=== PATIENT | male | born 1950 | race Caucasian/White ===

== ENCOUNTER 2023-10-28 08:45 | Outpatient (OUT) | payer MEDICARE, SELFPAY | END 2023-10-28 08:46 | disposition home or self-care (01) | PROVIDERS: PCP Radiology Diagnostic Radiology; Visit Provider Radiology Diagnostic Radiology | DX: I83.813 Varicose veins of bilateral lower extremities with pain (principal) ==

== ENCOUNTER 2023-11-05 08:02 | Outpatient (OUT) | payer MEDICARE, SELFPAY ==
--- NOTE | 2023-11-05 08:03 | VEIN_ITS ---
Patient Name: PRINCE CARO MR#: [id number] : 1950 Exam Date: 11/05/2023 Ordering Doctor: DR ARNULFO MACK M.D. RADIOLOGY REPORT PROCEDURE: [facility] COMPREHENSIVE VEIN CENTER - OFFICE VISIT INITIAL COMPARISON: None. PROGRESS NOTES: 73-year-old male who presents with a 10 year history of lower extremity pain swelling varicose veins. The patient complains of dilated discolored veins with leg swelling and muscle cramps. The patient's left side is worse than the right. The patient describes the pain as aching burning and heaviness and rates the pain as a 7 on a scale of 1-10. The patient's symptoms are exacerbated by prolonged sitting and standing and are partially relieved by rest, leg elevation, exercise, support stockings and diclofenac. History of varicose veins in the family, patient's father. The patient retired in 2010 from [employer]. The patient has had previous treatment for varicose veins in the [facility] having only injection sclerotherapy. Patient has worn knee high stockings since this treatments. The patient denies any signs and symptoms to suggest arterial ischemia. The patient describes a family history of type 2 diabetes in varicose veins in his father. The patient does not drink alcohol. No illicit drug use. The patient has never smoked. Past medical history is significant for 2 left knee replacements in 2002 and 2007. Cecectomy and hernia repair. Patient has a long history gout. Gastroesophageal reflux disease and hypertension. No history of deep venous thrombus or pulmonary embolus. See separate history and physical for medication list. Nursing notes were reviewed After history and physical exam I discussed at length the pathophysiology of venous hypertension and possible treatments, therapies and strategies available. We discussed at length the importance of elevating the lower extremities above the level of the heart, increased physical activity and compression stocking use. We discussed conservative treatment with bilateral compression stockings. We discussed surgical interventions including ligation and stripping and phlebectomy. We discussed intravenous laser ablation, micro foam chemical ablation and injection sclerotherapy at length. Risks benefits and alternatives were discussed. Patient questions were answered Ultrasound venous reflux study performed the same day was discussed at length with the patient. The report demonstrates mild right great saphenous vein venous insufficiency with dilatation and saphenofemoral junction reflux. Bilateral incompetent varicose veins. PHYSICAL EXAM: The right leg demonstrates mild to moderate scattered varicose, reticular and spider veins. Moderate subcutaneous edema mid calf ankle and foot. Some hemosiderin discoloration along the posterior distal lower leg. No active ulceration The left leg demonstrates moderate scattered varicose reticular and spider veins. Multiple pre hemorrhagic veins along the anterior lower leg and dorsal foot. Some hemosiderin staining noted distal lower leg. Both thighs, legs and feet were symmetrically warm to the touch. Good posterior tibial and dorsalis pedis pulses were present bilaterally. VEIN/VC Facility EST Comprehensive IMPRESSION: 1. Right great saphenous vein venous insufficiency 2. Bilateral incompetent lower extremity varicose veins 3. Moderate bilateral lower extremity subcutaneous edema with hemosiderin staining 4. No definite flow significant arterial disease 5. CEAP: C4a, Ep, As, Pr PLAN: 1. Endovenous laser ablation right great saphenous vein 2. Micro foam chemical ablation bilateral incompetent varicose veins 3. Injection sclerotherapy bilateral reticular, pre hemorrhagic and spider veins 4. Long-term use of bilateral thigh or knee high 20-30 mm compression stockings 5. Leg elevation and increased physical activity for symptomatic relief Nurse notes, history and physical were reviewed and confirmed, see attached forms. The nurse was present throughout the physical exam and consultation Dictated by: Arnulfo Mack MD on 11/05/2023 at 11:19 Approved by: Arnulfo Mack MD on 11/05/2023 at 11:25
--- NOTE | 2023-11-05 08:03 | VEIN_ITS ---
Patient Name: PRINCE CARO MR#: [id number] : 1950 Exam Date: 11/05/2023 Ordering Doctor: DR ARNULFO MACK M.D. RADIOLOGY REPORT PROCEDURE: VC EXT VENOUS REFLUX JOSE MARTIN LMTD COMPARISON: None. INDICATIONS: I83.813 Bilateral painful varicose veins TECHNIQUE: Duplex imaging of the lower extremity to assess the deep and superficial venous system for the presence of deep or superficial venous incompetence and to document the location and severity of disease. The study includes evaluation of the great saphenous vein (GSV), anterior accessory saphenous vein (AASV) and small saphenous vein (SSV). Patient scanned in reverse Trendelenburg and standing. FINDINGS: RIGHT LOWER EXTREMITY: Saphenofemoral Junction Reflux: Yes 9.1mm 1.1 sec GSV: Diam (mm) Reflux/ Time (sec) Proximal Thigh 6.2 Yes 1.3 Mid Thigh 3.0 Yes 1.0 Distal Thigh 2.7 No Prox Calf 2.4 Yes 0.8 Mid Calf 2.7 No Saphenopopliteal Junction Reflux: 2.6mm No SSV: Proximal Calf 2.5 No Mid Calf 2.9 No AASV: Not present Thrombi: No acute or chronic thrombus visualized Compressibility: Normal Flow: Normal Preforator: Dist/med calf 2.6mm with 0s reflux. Prox/med calf 3.4mm with 0s reflux. Tech Note: Incompetent GSV. Patent varicose vein prox/med calf 4.2mm with 0s reflux. LEFT LOWER EXTREMITY: Saphenofemoral Junction Reflux: Yes 5.5 mm 1.0 sec GSV: Diam (mm) Reflux/Time (sec) Proximal Thigh N/A Mid Thigh N/A Distal Thigh N/A Prox Calf N/A Mid Calf N/A Saphenopopliteal Junction Relux: 2.5 mm No SSV: Proximal Calf 2.2 No Mid Calf 2.8 No AASV: Proximal Thigh 3.4 Yes 1.1 Mid Thigh Distal Thigh Thrombi: No acute or chronic thrombus visualized Compressibility: Normal Flow: Normal Stock Order Lister: Dist/med calf 3.3mm with 0s reflux. Tech Note: GSV previously treated. Patent varicose vein mid/med calf 4.1mm with 1.0s reflux. Patent varicose vein prox/med calf 5.3mm with 2.1s reflux. Patent varicose vein dist/med thigh 4.4mm with 0.8s reflux. CONCLUSION: 1. Mild venous insufficiency right great saphenous vein with dilatation and saphenofemoral junction reflux 2. Bilateral incompetent varicose veins measuring up to 5.3 mm on the left Dictated by: Arnulfo Mack MD on 11/05/2023 at 09:41 Approved by: Arnulfo Mack MD on 11/05/2023 at 09:42
--- OUTSIDE RECORDS SUMMARY | 2023-11-05 08:04 | XMS_ITS | CCD ---
Author Organization [facility] Care Team Providers Care Machine Tack Puller Name Role Phone DO Alexandra Shelton Primary Care Provider [phone] MD Dimitris Lin Attending Provider [phone] Mikayla Odell Unavailable DO Alexandra Shelton Primary Care Provider [phone] MD Dimitris Lin Attending Provider Dimitris Lin Admitting Unavailable Dimitris Lin Attending Unavailable Alexandra Shelton Primary Care Unavailable Dimitris Lin Admitting Unavailable Dimitris Lin Attending Unavailable Alexandra Shelton Primary Care Unavailable ALEXANDRA SHELTON Attending Unavailable ALEXANDRA SHELTON Referring Unavailable Problems Problem Classification Problem Date Documented Da te Episodic/Chronic Immunizations and screening for infectious disease (3 sources) Encounter for immunization Onset: 06-27-2021 Resolved: 01-18-2022 Episodic Unclassified (1 source) Encounter for immunization; Translations: [Encounter for immunization] Onset: 07-31-2022 Unclassified (1 source) Z23 - Encounter for immunization; Translations: [Z23 - Encounter for immunization] Onset: 01-18-2022 Results Test Name Value Interpretation Reference Range Facil ity Basic Metabolic Panelon 06-0 Anion gap [Moles/Vol] 19 mmol/L Normal 12-20 [facility] [employer]er Comment on above: Result Comment: Effjared ctive 08/17/2019 reference range changed. Performed By: #### U SCOTT, LIPD, BMP #### [facility] [address] [place], [place] [id number] Calcium [Mass/Vol] 9.7 mg/dL Normal 8.6-10.2 [facility] [employer]sembler Comment on above: Performed By: #### U SCOTT, LIPD, BMP #### [facility] [address] [facility] [place] [id number] Chloride [Moles/Vol] 103 mmol/L Normal 98-107 [facility] [employer]er Comment on above: Performed By: #### U SCOTT LIPD, BMP #### [facility] [address] [facility] [place] [id number] CO2 [Moles/Vol] 21 mmol/L Normal 20-31 [facility] [employer]er Comment on above: Performed By: #### U SCOTT LIPD, BMP #### [facility] [address] [facility] [id number] Creatinine [Mass/Vol] 1.0 mg/dL Normal 0.7-1.4 [facility] [employer] Comment on above: Performed By: #### U SCOTT LIPD, BMP #### [facility] [address] [facility] [place] [id number] eGFRAA 86 mL/min/1.73m2 Normal >60 [facility] [employer]er Comment on above: Performed By: #### U SCOTT LIPD, BMP #### [facility] [address] [facility] [place] [id number] eGFRNAA 71 mL/min/1.73m2 Normal >60 [facility] [employer]er Comment on above: Performed By: #### U MERY CHAVEZD, BMP #### [facility] [address] [place], [place] [id number] Glucose [Mass/Vol] 98 mg/dL Normal 65-99 [facility] [employer]er Comment on above: Result Comment: For FASTING Glucose --- ADA reference ranges: Normal 65-99 mg/dl Prediabetes 100-125 Diabetes >/= 126 Performed By: #### U SCOTT LIPD, BMP #### [facility] [address] [facility] [place] [id number] Potassium [Moles/Vol] 4.8 mmol/L Normal 3.5-5.5 [facility] [employer]er Comment on above: Performed By: #### U SCOTT LIPD, BMP #### [facility] [address] [facility] [place] [id number] Sodium [Moles/Vol] 138 mmol/L Normal 135-146 [facility] [employer]er Comment on above: Performed By: #### U SCOTT, LIPD, BMP #### [facility] [address] [place], [place] [id number] Urea nitrogen [Mass/Vol] 20 mg/dL Normal 7-25 [facility] [employer]er Comment on above: Performed By: #### U SCOTT, LIPD, BMP #### [facility] [address] [place], [place] [id number] Lipid Panelon 01-10-2022 Cholesterol [Mass/Vol] 209 mg/dL High 125-200 [facility] [employer]er Comment on above: Result Comment: Low risk < 200mg/dL Borderline risk 201-239 mg/dl High risk > or equal to 240 Performed By: #### U SCOTT, LIPD, BMP #### [facility] [address] [place], [place] [id number] Cholesterol in HDL [Mass/Vol] 43 mg/dL Normal >40 [facility] [employer] Comment on above: Result Comment: High Cardiovascular Risk HDL <40 mg/dL Low Cardiovascular Risk HDL > or equal to 60 mg/dl Performed By: #### U SCOTT, LIPD, BMP #### [facility] [address] [place], [place] [id number] Cholesterol in LDL [Mass/Vol] 138 mg/dL Normal [facility] [employer]er Comment on above: Result Comment: LDL ATP III CLASSIFICATION LDL less than 100 mg/dl Optimal LDL 100-129 mg/dl Near or above optimal LDL 130-159 Borderline high LDL 160-189 High LDL greater than 189 mg/dl Very High Performed By: #### U SCOTT, LIPD, BMP #### [facility] [address] [place], [place] [id number] Cholesterol in VLDL [Mass/Vol] 28 mg/dL Normal [facility] [employer]er Comment on above: Performed By: #### U SCOTT, LIPD, BMP #### [facility] [address] [place], [place] [id number] Cholesterol.total/ Cholesterol in HDL [Mass ratio] 5 {ratio} Normal [facility] [employer]er Comment on above: Performed By: #### U SCOTT, LIPD, BMP #### [facility] [address] [place], [place] [id number] Triglyceride [Mass/Vol] 140 mg/dL Normal 30-150 [facility] [employer] Comment on above: Result Comment: TRIG ATPIII CLASSIFICATIONS TRIG less than 150 mg/dl Normal TRIG 150-199 mg/dl Borderline High TRIG 200-500 mg/dl High TRIG greather than 500 mg/dl Very High Performed By: #### U ASHLEIGH CHAVEZ, BMP #### [facility] [address] [place], [place] [id number] PSA SCREEN (MEDICARE)on TPSA 1.120 ng/mL Normal <4.000 [facility] [employer]er Comment on above: Result Comment: PSA Test Method: ECLIA/Yoseph e 601 Performed By: #### P SA #### [facility] [address] [place], [place] [id number] Uric Acidon 01-10-2022 URIC 8.8 mg/dL High 4.0-8.0 [facility] [employer]er Comment on above: Result Comment: Refe rence range change 06/28/2017. Prior reference range F 2.4-5.7mg/dL. M 3.4-7.0 mg/dL. Performed By: #### U ASHLEIGH CHAVEZ, BMP #### [facility] [address] [place], [place] [id number] Encounters Encounter Date Encounter Type Care Provider Facility Start: 07-22-2023 End: 07-22-2023 ambulatory ALEXANDRA SHELTON Not Available Start: 07-31-2022 End: 07-31-2022 ambulatory Dimitris Lin Facility:[facility] Start: 07-31-2022 End: 07-31-2022 Patient encounter procedure DO Alexandra Shelton Work Phone: [facility] Vaccine Off Site Start: 07-31-2022 ([facility] C Vac) [facility] Co vid [facility] Start: 07-31-2022 End: 07-31-2022 ambulatory DO Alexandra Shelton Work Phone: [facility] Work Phone: Start: 01-18-2022 ([facility] C Vac) [facility] Co vid Vaccine Mikayla Odell On License Of [facility] Start: 01-18-2022 End: 01-18-2022 ambulatory Dimitris Lin [facility] Other Start: 01-18-2022 End: 01-18-2022 Patient encounter procedure DO Alexandra Shelton Work Phone: [facility] Vaccine Off Site Start: 06-27-2021 ([facility] C Vac) [facility] Co vid Vaccine Mikayla Fitt On License Of [facility] Start: 06-27-2021 End: 06-27-2021 ambulatory Mikayla Fitt Other [facility] Other Immunizations Immunization Date Immunization Notes Care Provider Fa marta 07-31-2022 COVID-19 Pfizer (bivalent) Mikayla Fitt Other [facility] Other 01-18-2022 COVID-19 Pfizer Mikayla Fitt Other [facility] Other 06-27-2021 COVID-19 Pfizer Mikayla Fitt Other [facility] Other 12-07-2020 COVID-19 mRNA, Comirnaty (Pfizer) DO Alexandra Nikita Work Phone: [facility] 11-09-2020 COVID-19 mRNA, Comirnaty (Pfizer) DO Alexandragaurang Shelton Work Phone: [facility] Payers Date Payer Category Payer Self-pay [id number] 2013 Medicare [id number] 1950 Unknown [id number] Unknown [id number] Unknown [id number] Social History Date Type Detail Facility Tobacco smoking status NHIS Unknown if ever smoked [facility] Other Start: 1950 Sex Assigned At Male F [facility] Sex Assigned At Sex Assigned At Bir th [facility] Other Evaluation note 07-31-2022 Note Date & Type Note Facility 07-31-2022 Evaluation note Encounter Date Diagnosis Assessment Notes Jul, Encounter for immunization (ICD-10 - Z23) Patient presents for COVID-19 vaccination BOOSTER. Pre-screening form answers evaluated with patient. Patient denies current illness or allergic reaction to component of COVID-19 vaccine. Patient provided with current copy of EUA. [facility] Other Evaluation note 01-18-2022 Note Date & Type Note Facility 01-18-2022 Evaluation note Encounter Date Diagnosis Assessment Notes Jan, Encounter for immunization (ICD-10 - Z23) Patient presents for COVID-19 vaccination BOOSTER. Pre-screening form answers evaluated with patient. Patient denies current illness or allergic reaction to component of COVID-19 vaccine. Patient provided with current copy of EUA. [facility] Other Evaluation note 06-27-2021 Note Date & Type Note Facility 06-27-2021 Evaluation note Encounter Date Diagnosis Assessment Notes Jun, Encounter for immunization (ICD-10 - Z23) Patient presents for COVID-19 vaccination BOOSTER. Pre-screening form answers evaluated with patient. Patient denies current illness or allergic reaction to component of COVID-19 vaccine. Patient provided with current copy of Y[facility]uto. [facility] Other Evaluation note Note Date & Type Note Facility Evaluation note No assessment information availa [facility] Work Phone: Summary Purpose Family History No Family History Records FoundNo Family History Records FoundNo Family History Records Found Advance Directives No Advanced Directives Records Found Advance Directive Response Recorded Date/ Time Advance Directives No February 24 18 11:27am Advance Directive Response Recorded Date/ Time Advance Directives No February 24 10:27am Additional Source Comments (unrecognized sect ion and content) No Status Records FoundNo Status Records FoundNo Status Records Found INFORMATION SOURCE (unrecogn ized section and content) DATE CREATED AUTHOR 01/11/2022 [facility] DATE CREATED AUTHOR AUTHOR'S ORGANIZ ATION 08/10/2022 [facility] DATE CREATED AUTHOR AUTHOR'S ORGANIZ ATION 07/23/2023 [facility] EPIC Care Teams (unrecognized sec tion and content) Team Status: Inactive Member Role Status Dates Alexandra Shelton DO Primary Care Provider Active Dimitris Lin MD Attending Provider Active Team Status: Active Member Role Status Dates Alexandra Shelton DO Primary Care Provider Active Goals (unrecognized section and content) Goals may be documented in a n alternate sectionNo InformationNo InformationGoals may be documented in an alternate sectionNo Information REASON FOR VISIT (unrecogniz ed section and content) PFIZER VACCINE BOOSTERPFIZER BOOSTER #2Pfizer bivalent booster FOR RECORDS PERTAINING TO PATIENTS WHO ARE OR HAVE BEEN ENROLLED IN A CHEMICAL DEPENDENCY/SUBSTANCEABUSE PROGRAM, SOME INFORMATION MAY BE OMITTED. This clinical summary was aggregated from multiple sources. Caution should be exercised in using it in the provision of clinical care. This summary normalizes information from multiple sources, and as a consequence, information in this document may materially change the coding, format and clinical context of patient data. In addition, data may be omitted in some cases. CLINICAL DECISIONS SHOULD BE BASED ON THE PRIMARY CLINICAL RECORDS. [facility] [employer] provides no warranty or guarantee of the accuracy or completeness of information in this document.
== END 2023-11-05 08:03 | disposition home or self-care (01) ==
LOC: VC 08:02
PROVIDERS: PCP Radiology Diagnostic Radiology; Visit Provider Radiology Diagnostic Radiology
DX: I83.813 Varicose veins of bilateral lower extremities with pain (principal)
CPT/HCPCS: 93970; G0463

== ENCOUNTER 2023-11-14 09:23 | Outpatient (OUT) | payer MEDICARE, SELFPAY ==
--- NOTE | 2023-11-14 09:24 | VEIN_ITS ---
[address] [address] Patient Name: PRINCE CARO MRN: [id number] date: 1950 Sex: M Assigned Patient Location: Current Patient Location: Accession/Order Number: [id number] Exam Date: 11/14/2023 10:20 Report Date: 11/14/2023 12:31 At the request of: LANE IVAN Procedure: VC Endovenous Ablation 1VeinRT EXAMINATION: VC Endovenous Ablation 1VeinRT HISTORY: Pain due to varicose veins of bilateral legs I83.813 The risks and benefits of the procedure had been previously discussed, and were rediscussed at length. Informed written consent was obtained. Carline Yancey RN and Autumn Lee RDMS, RVT assisted. Time out procedure was performed. The right lower extremity was prepared and draped in the usual sterile fashion to allow knee flexion in the sterile field. Duplex ultrasound probe was draped in a sterile cover, sterile transmission gel was used. Venous mapping was performed with the areas of dilation and large tributaries marked. The total length was 48 cm from the entry proximal calf to 3 cm below the Saphenofemoral junction. The diameter of the right great saphenous vein ranged from 6.2 mm. A 30 gauge needle and 1% buffered lidocaine was used to anesthetize the entry site. A 4 mm incision was made with a scalpel and the saphenous vein was entered percutaneously under direct ultrasound guidance with a micropuncture set, a single stick was successful in gaining access. A micro-guide wire was inserted and the needle removed. A micro-set including a dilator was inserted over the microwire and the needle and dilator were removed. A guide wire was inserted through the micro-set and guided through the saphenous vein to the saphenofemoral junction. The dilator was removed and an introducer sheath was inserted over the wire until the end of the sheath entered the saphenofemoral junction. The dilator and wire were removed and the 600 micron fiber was introduced and placed and positioned so that it extended beyond the sheath and was 3 cm distal to the saphenofemoral or saphenopopliteal junction. Final position of the fiber was determined by ultrasound guidance and duplex imaging. Tumescent anesthetic was delivered by ultrasound guidance. 250 cc of fluid was delivered along the entire course of the saphenous vein. The solution consisted of 1000 cc of normal saline with 40 mL of 1% lidocaine and 20 mL of sodium bicarbonate. A final positioning check was made. The energy source was turned on by means of the foot pedal and the fiber and sheath were withdrawn. The total number of Joules delivered was 2276. The laser was active for 285 seconds under continuous pulse, average laser use of 8 J. Laser start time: 11:04 AM Laser stop time: 11:09 AM Date: 11/14/2023. A duplex ultrasound revealed compressibility and flow at the saphenofemoral junction immediately after the procedure. Hemostasis at the access site was achieved. The skin incision of the saphenous vein was closed with a 4 x 4. A compression stocking was applied. Postop instructions were given. A follow up appointment was recommended and scheduled. The patient tolerated the procedure well. Electronically authenticated by: TRUONG RODRIGUEZ Date: 11/14/2023 12:31
[2023-11-14] MEDS: 0.9 % SODIUM CHLORIDE 500 ML, LIDOCAINE HCL 20 ML, SODIUM BICARBONATE 10 MEQ INJ (09:55)
[2023-11-14] MEDS: LIDOCAINE HCL 1% 100 MG/10 ML MDV INJ (09:56)
== END 2023-11-14 09:24 | disposition home or self-care (01) ==
LOC: VC 09:23
PROVIDERS: PCP Radiology Diagnostic Radiology; Visit Provider Radiology Diagnostic Radiology
DX: I83.813 Varicose veins of bilateral lower extremities with pain (principal)
CPT/HCPCS: 36478

== ENCOUNTER 2023-11-20 10:25 | Outpatient (OUT) | payer MEDICARE, SELFPAY ==
--- NOTE | 2023-11-20 10:27 | VEIN_ITS ---
Patient Name: PRINCE CARO MR#: [id number] : 1950 Exam Date: 11/20/2023 Ordering Doctor: DR ARNULFO MACK M.D. RADIOLOGY REPORT PROCEDURE: VC FACILITY EST LMTD VEIN CENTER - OFFICE VISIT FOLLOW UP COMPARISON: None. PROGRESS NOTES: The patient reports no significant problems following intravenous laser ablation of the right great saphenous vein. The patient did not require oral analgesics. The patient has worn his compression stocking and tried exercise Physical exam demonstrates no significant erythema or warmth to suggest cellulitis or thrombophlebitis. No active ulceration. No bruising. Thrombosed right great saphenous vein can be partially palpated Review of the ultrasound performed the same day demonstrates occlusive thrombus extending throughout the treated right great saphenous vein with heat induced thrombus 2.7 cm from the saphenofemoral junction. No deep vein thrombus. The patient expressed a desire to proceed with treatment of incompetent varicose veins with micro foam chemical ablation. VEIN/VC Facility EST LMTD IMPRESSION: 1. Successful ablation of the right great saphenous vein 2. Persistent bilateral incompetent varicose veins. PLAN: Micro foam chemical ablation left leg incompetent varicose veins Nurse notes, history and physical were reviewed and confirmed, see attached forms. The nurse was present throughout the physical exam and consultation Dictated by: Arnulfo Mack MD on 11/20/2023 at 11:29 Approved by: Arnulfo Mack MD on 11/20/2023 at 11:30
--- NOTE | 2023-11-20 10:28 | VEIN_ITS ---
Patient Name: PRINCE CARO MR#: [id number] : 1950 Exam Date: 11/20/2023 Ordering Doctor: DR ARNULFO MACK M.D. RADIOLOGY REPORT PROCEDURE: VC EXT VENOUS RT LMTD COMPARISON: None. INDICATIONS: Phlebitis of superficial vein of right lower extremity I80.01 TECHNIQUE: Lower extremity sheffield scale and Duplex Doppler evaluation of the deep venous system from the inguinal ligament through the calf veins. FINDINGS: REGION: Right lower extremity. THROMBI: Negative for DVT. Heat induced thrombus in right GSV 2.7 cm from SFJ and extends to proximal calf. COMPRESSIBILITY: Non-compressible segments corresponding to thrombus FLOW: Areas of no flow corresponding to thrombus CONCLUSION: Post ablation occlusion of the right great saphenous vein with heat induced thrombus 2.7 cm from the saphenofemoral junction Dictated by: Arnulfo Mack MD on 11/20/2023 at 11:11 Approved by: Arnulfo Mack MD on 11/20/2023 at 11:12
== END 2023-11-20 10:26 | disposition home or self-care (01) ==
LOC: VC 10:25
PROVIDERS: PCP Radiology Diagnostic Radiology; Visit Provider Radiology Diagnostic Radiology
DX: I80.01 Phlebitis and thrombophlebitis of superficial vessels of right lower extremity (principal)
CPT/HCPCS: 93971; G0463

== ENCOUNTER 2023-12-03 10:27 | Outpatient (OUT) | payer MEDICARE, SELFPAY ==
--- NOTE | 2023-12-03 10:27 | VEIN_ITS ---
[address] [address] Patient Name: PRINCE CARO MRN: [id number] date: 1950 Sex: M Assigned Patient Location: Current Patient Location: Accession/Order Number: [id number] Exam Date: 12/03/2023 10:35 Report Date: 12/03/2023 13:08 At the request of: LANE IVAN Procedure: VC INJ Foam Sclerosant [employer] PROCEDURE: VC INJ Foam Sclerosant [employer], left leg COMPARISON: None. HISTORY: I83.813 Pain due to varicose veins of bilateral legs Pre-operative Diagnosis: CEAP class C4a venous insufficiency with pain, tenderness, edema and incompetent left saphenous vein(s), chronic venous insufficiency leg secondary to venous incompetence Post-operative Diagnosis: CEAP class C4a venous insufficiency with pain, tenderness, edema and incompetent left saphenous vein(s), chronic venous insufficiency leg secondary to venous incompetence Procedure Performed: 1. Ultrasound-guided microfoam chemical ablation with Varithenaregistered 2. Intraoperative ultrasound guidance Anesthesia: None Indications for Procedure: 73-year-old male who presents with a long history of lower extremity pain and swelling varicose veins with hemosiderin staining. The patient failed conservative medical therapy including medical compression stockings, exercise and analgesics. Prior procedures include endovenous laser ablation. Multiple incompetent varicosities of the left leg. Duplex scan showed reflux and enlarged diameters up to 5 mm. The patient underwent informed consent including management options where the complications of infection, bleeding, pain, and skin injury were discussed. Particular attention was spent discussing thrombus extension and deep vein thrombosis as well as the possibility of pulmonary embolus and treatment with oral or injectable blood thinners. Procedure: The patient walked to the procedure room. All applicable staff donned appropriate apparel. A procedure timeout was performed to confirm correct patient, correct extremity, correct procedure, and correct room set-up including presence of all applicable supplies, devices, and drugs. A duplex ultrasound, performed by myself confirmed the location and incompetence of branch saphenous varicosities and their course was marked on the skin together with the dilated tributaries. The extent of treatment of the vein and the associated varicosities was determined through ultrasound mapping. The skin was prepped and then punctured with a butterfly needle and advanced under ultrasound guidance. The Varithenaregistered canister was activated and the canister was primed and purged as required in the instructions for use. Varithenaregistered was drawn into a sterile syringe. The following injections were made: 7 cc injected into a 5 mm varicose vein left distal medial lower leg 5 cc injected into a 4 mm varicose veins left proximal medial lower leg 2 cc injected into a 3 mm varicose vein medial left ankle Varithenaregistered was slowly administered at 0.5-1.0 cc/second with close observation by ultrasound of its course in the vessels. Total volume utilized was: 15cc. Following administration of Varithenaregistered the leg was elevated and the patient was asked to repeatedly dorsiflex the ankle to limit flow of Varithenaregistered into perforating veins. Once appropriate spasm had been confirmed in the treated veins, the vascular catheter was removed from the leg and light pressure was applied over the puncture site for hemostasis. The common femoral and deep superficial veins were then evaluated for flow and compressibility prior to dressing placement. The lower extremity was kept elevated at 45 degrees above the horizontal and cording material was applied over the saphenous segments and tributaries to allow for eccentric compression over the target vessels including the targeted saphenous vein(s). A multilayer dressing was applied consisting of foam pads, coban and thigh-high 20-30 mm Hg compression elastic support hose were placed on the patient. The leg was lowered only after compression had been applied and the patient was immediately ambulatory. The patient ambulated 10 minutes under supervision and was without apparent concerns at time of release. Post-care instructions include advising patient to keep post-treatment bandages in place and dry for 48 hours, avoid extended periods of inactivity, avoid heavy exercise for one week, wear compression stockings on the treated leg continuously for two weeks, to walk daily for 10 minutes over the next month. The patient was instructed to take an anti-inflammatory medicine as needed and to follow up for color duplex scan of the Saphenous veins, the treated branch saphenous varicosities, the adjacent deep veins, and additional treatment within 7 days. PERSONNEL: Bassem Huang RN Electronically authenticated by: LANE VIAN Date: 12/03/2023 13:08
== END 2023-12-03 10:28 | disposition home or self-care (01) ==
LOC: VC 10:27
PROVIDERS: PCP Radiology Diagnostic Radiology; Visit Provider Radiology Diagnostic Radiology
DX: I83.813 Varicose veins of bilateral lower extremities with pain (principal)
CPT/HCPCS: 36466

== ENCOUNTER 2023-12-06 12:18 | Outpatient (OUT) | payer MEDICARE, SELFPAY ==
--- NOTE | 2023-12-06 | VEIN_ITS ---
Patient Name: PRINCE CARO MR#: [id number] : 1950 Exam Date: 12/06/2023 Ordering Doctor: DR ARNULFO MACK M.D. RADIOLOGY REPORT PROCEDURE: [facility] EST LMTD [facility] - OFFICE VISIT FOLLOW UP COMPARISON: [facility], 11/20/2023. PROGRESS NOTES: The patient reports no significant problems following micro foam chemical ablation of left leg incompetent varicose veins. The patient did not require oral analgesics. The patient did wear his compression stocking. The patient did exercise. Physical exam demonstrates thrombosed left leg varicose veins. No residual varicose veins are observed on the left leg. Review of the ultrasound performed the same day demonstrates occlusive thrombus extending throughout the treated left leg varicose veins. No deep vein thrombus. Incompetent right leg varicose veins measuring up to 4.2 mm with reflux of 1 second. The patient expressed a desire to proceed with treatment of incompetent right leg varicose veins. [facility]: 1. Successful ablation of treated left leg varicose veins 2. Persistent incompetent right leg varicose veins. PLAN: Micro foam chemical ablation right leg incompetent varicose veins Nurse notes, history and physical were reviewed and confirmed, see attached forms. The nurse was present throughout the physical exam and consultation Dictated by: Arnulfo Mack MD on 12/06/2023 at 13:46 Approved by: Arnulfo Mack MD on 12/06/2023 at 13:47
--- NOTE | 2023-12-06 | VEIN_ITS ---
Patient Name: PRINCE CARO MR#: [id number] : 1950 Exam Date: 12/06/2023 Ordering Doctor: DR ARNULFO MACK M.D. RADIOLOGY REPORT PROCEDURE: VC EXT VENOUS LT LIMITED COMPARISON: None. INDICATIONS: Phlebitis of superficial veins of lt lower extremity I80.02 TECHNIQUE: Lower extremity sheffield scale and Duplex Doppler evaluation of the deep venous system from the inguinal ligament through the calf veins. FINDINGS: REGION: Left lower extremity. THROMBI: Negative for DVT. COMPRESSIBILITY: Non-compressible segments corresponding to thrombus FLOW: Areas of no flow corresponding to thrombus OTHER: No residual patent varicose vein CONCLUSION: Post ablation occlusion treated left leg varicose veins with no deep vein thrombus or residual incompetent varicose veins Dictated by: Arnulfo Mack MD on 12/06/2023 at 13:11 Approved by: Arnulfo Mack MD on 12/06/2023 at 13:12
== END 2023-12-06 12:19 | disposition home or self-care (01) ==
LOC: VC 12:18
PROVIDERS: PCP Radiology Diagnostic Radiology; Visit Provider Radiology Diagnostic Radiology
DX: I80.02 Phlebitis and thrombophlebitis of superficial vessels of left lower extremity (principal)
CPT/HCPCS: 93971; G0463